=== PATIENT | female | born 1970 | race Hispanic/Latino ===

== ENCOUNTER 2020-06-24 17:03 | Emergency (ER) | payer SELFPAY ==
--- NOTE | 2020-06-24 17:56 | Emergency Department Report ---
ED Extremity Problem HPI - General Stated complaint: RT FOREARM/ FINGERS TURNING BLUE Time Seen by Provider: 06/24/20 17:12 Source: patient Mode of arrival: Ambulatory Limitations: Physical Limitation - History of Present Illness Initial comments: Patient is a 50-year-old female presents emergency room with complaints of her splint on her arm being too tight. She states that she was at [facility] and diagnosed with a midshaft radial and ulnar fracture. She states that the splint feels too tight and is uncomfortable. She states that she has some mild bruising to her thumb. She denies any numbness or weakness or significant arm swelling. She has not followed up with orthopedic doctor. She states that she has only taking ibuprofen and Tylenol for pain but continues to have discomfort. - Related Data Previous Rx's Medication Instructions Recorded Last Taken Type Acetaminophen/Codeine [Tylenol 1 tab PO Q6H PRN #10 tab 06/24/20 Unknown Rx /Codeine # 3 tab] Allergies Allergy/AdvReac Type Severity Reaction Status Date / Time erythromycin base Allergy Unknown Verified 06/24/20 18:28 [From Erythrocin] tramadol Allergy Unknown Verified 06/24/20 18:28 ED Review of Systems ROS: Stated complaint: RT FOREARM/ FINGERS TURNING BLUE Other details as noted in HPI Comment: All other systems reviewed and negative ED Past Medical Hx - Medications Home Medications: Home Medications Medication Instructions Recorded Confirmed Last Taken Type Acetaminophen/Codeine [Tylenol 1 tab PO Q6H PRN #10 tab 06/24/20 Unknown Rx /Codeine # 3 tab] ED Physical Exam - General Limitations: Physical Limitation General appearance: alert, in no apparent distress - Head Head exam: Present: atraumatic, normocephalic - Eye Eye exam: Present: normal appearance - ENT ENT exam: Present: mucous membranes moist - Respiratory Respiratory exam: Absent: respiratory distress, accessory muscle use - Extremities Exam Extremities exam: Present: other (there is a long arm splint present to the right upper extremity, does appear to be quite tight, neurovascularly intact with brisk cap refill) - Neurological Exam Neurological exam: Present: alert, oriented X3 - Psychiatric Psychiatric exam: Present: normal affect, normal mood - Skin Skin exam: Present: warm, dry, intact ED Course Vital Signs 06/24/20 17:09 Temperature 98.3 F Pulse Rate 95 H Respiratory 16 Rate Blood Pressure 140/84 O2 Sat by Pulse 99 Oximetry ED Medical Decision Making - Medical Decision Making Patient is a 50-year-old female presents emergency room with complaints of her splint on her arm being too tight. She states that she was at [facility] and diagnosed with a midshaft radial and ulnar fracture. She states that the splint feels too tight and is uncomfortable. She states that she has some mild bruising to her thumb. She denies any numbness or weakness or significant arm swelling. She has not followed up with orthopedic doctor. She states that she has only taking ibuprofen and Tylenol for pain but continues to have discomfort. on exam: there is a long arm splint present to the right upper extremity, does appear to be quite tight, neurovascularly intact with brisk cap refill. No signs of compartment syndrome or neurovascular compromise. Old splint was removed and a new long-arm splint was placed by nurse and tech and patient remained neurovascular intact and she states that it feels much better. Discussed with patient the importance of orthopedic follow-up. Discussed very strict return precautions. Patient given prescription for Tylenol with codeine. Advised patient Please take medication as prescribed. Do not drive or operate machinery while taking severe pain medication. Follow-up with orthopedic doctor. It is very important that you follow-up. Return to emergency room for new or symptoms. Critical care attestation.: If time is entered above; I have spent that time in minutes in the direct care of this critically ill patient, excluding procedure time. ED Disposition Clinical Impression: Fracture of radial shaft with ulna, closed Qualifiers: Encounter type: subsequent encounter Laterality: right Fracture healing: with routine healing Qualified Code(s): S52.201D - Unspecified fracture of shaft of right ulna, subsequent encounter for closed fracture with routine healing Disposition: DC-01 TO HOME OR SELFCARE Is pt being admited?: No Does the pt Need Aspirin: No Condition: Stable Instructions: Radial Fracture, Ulnar Fracture Additional Instructions: Please take medication as prescribed. Do not drive or operate machinery while taking severe pain medication. Follow-up with orthopedic doctor. It is very important that you follow-up. Return to emergency room for new or symptoms. Prescriptions: Acetaminophen/Codeine [Tylenol /Codeine # 3 tab] 1 tab PO Q6H PRN #10 tab PRN Reason: Pain , Severe (7-10) Referrals: KATYA MCCLENDON MD [Staff Physician] - 2-3 Days [facility] [Provider Group] - 2-3 Days Time of Disposition: 17:55 Print Language: CANADIAN
[2020-06-24 18:35] VITALS: BP 140/84
== END 2020-06-24 18:36 | disposition home or self-care (01) ==
LOC: ED 17:03
DX: S52.201A Unspecified fracture of shaft of right ulna, initial encounter for closed fracture (principal); Z79.899 Other long term (current) drug therapy; X58.XXXA Exposure to other specified factors, initial encounter; Y93.89 Activity, other specified; Y92.89 Other specified places as the place of occurrence of the external cause; Y99.8 Other external cause status
CPT/HCPCS: 99282